=== PATIENT | male | born 1975 | race Caucasian/White ===

== ENCOUNTER 2020-04-15 22:06 | Emergency (ER) | payer OTHER, SELFPAY ==
--- NOTE | ~2020-04-15 | XR_ITS ---
. EXAMINATION: XR tibia fibula RT 2V DATE: 04/15/2020 22:39 INDICATION: Bruising at the right knee post fall 2 days prior. TECHNIQUE: AP and lateral views of the right tibia and fibula were obtained on overlapping proximal a nd distal images. COMPARISON: None. FINDINGS: Bone alignment is normal. No fracture. Joint spaces appear normal on nonweightbearing imaging. No rig ht knee or ankle joint effusion. Soft tissues are unremarkable with no radiopaque foreign bodies. IMPRESSION: 1. Negative right tibia/fibula radiographs. Reviewed, dictated and finalized at location A. [employer]
[2020-04-15 22:06] VITALS: BP 160/116; PULSE 105; RESP 16; TEMP 37.2; O2SAT 95
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
[2020-04-15] MEDS: TETANUS,DIPHTHERIA,AC PERTUSSIS ADULT (0.5 ML) BOOSTRIX IM (22:46)
--- NOTE | 2020-04-15 22:50 | PC.NURSE ---
Pt ambulated well in hallway without assistance
[2020-04-15 22:57] VITALS: BP 160/95; PULSE 92; RESP 16; TEMP 37.2; O2SAT 100
== END 2020-04-15 23:10 | disposition home or self-care (01) ==
PROVIDERS: Emergency Provider Emergency Medicine
DX: S81.001A Unspecified open wound, right knee, initial encounter (principal); L08.9 Local infection of the skin and subcutaneous tissue, unspecified; Z23 Encounter for immunization; I10 Essential (primary) hypertension; K21.9 Gastro-esophageal reflux disease without esophagitis; E78.5 Hyperlipidemia, unspecified; G47.33 Obstructive sleep apnea (adult) (pediatric); G56.22 Lesion of ulnar nerve, left upper limb; I48.0 Paroxysmal atrial fibrillation; M18.9 Osteoarthritis of first carpometacarpal joint, unspecified; F32.9 Major depressive disorder, single episode, unspecified; W19.XXXA Unspecified fall, initial encounter
CPT/HCPCS: 73590; 90471; 90715; 99283

== ENCOUNTER 2020-12-25 09:36 | Outpatient (CLI) | payer OTHER, SELFPAY ==
[2020-12-25 10:22] LABS: Basophils Absolute Auto 0.1 K/mm3 (0.0-0.1); Basophils Percent Auto 0.8 % (0.2-1.2); Eosinophils Absolute Auto 0.1 K/mm3 (0-0.3); Eosinophils Percent Auto 1.4 % (0-4.4); Hematocrit 40.9 % (42.0-52.0); Hemoglobin 12.9 g/dL (14.0-18.0); Immature Granulocyte Absolute 0.01 K/mm3 (0.00-0.031); Immature Granulocyte Percent A 0.1 % (0-0.5); Lymphocytes Absolute Auto 2.74 K/mm3 (0.9-3.2); Lymphocytes Percent Auto 35.9 % (18.3-44.2); Mean Corpuscular HGB Conc 31.5 g/dl (32-36); Mean Corpuscular Hemoglobin 32.8 pg (26-34); Mean Corpuscular Volume 104.1 fl (80-100); Mean Platelet Volume 9.2 fl (7.4-10.4); Monocytes Absolute Auto 1.2 K/mm3 (0.1-0.6); Monocytes Percent Auto 15.6 % (2.6-8.5); Neutrophils Absolute Auto 3.5 K/mm3 (1.3-6.7); Neutrophils Percent Auto 46.2 % (45.5-73.1); Platelet Count Result 272 k/mm3 (150-375); Red Blood Count 3.93 M/mm3 (4.6-6.20); White Blood Count 7.6 K/mm3 (4.5-10.0)
[2020-12-25 10:41] LABS: Alanine Aminotransferase 78 U/L (4-50); Albumin Level 4.9 g/dL (3.5-5.1); Alkaline Phosphatase 60 U/L (38-126); Anion Gap 14 mmol/L (8-16); Aspartate Amino Transferase 88 U/L (17-59); Bilirubin,Total 0.5 mg/dL (0.2-1.3); Blood Urea Nitrogen 12 mg/dL (9-20); Calcium 10.1 mg/dL (8.4-10.2); Carbon Dioxide 21 mmol/L (22-30); Chloride 107 mmol/L (98-107); Cholesterol 248 mg/dL (0-200); Estimated Glomerular Filt Rate > 60; Glucose 107 mg/dL (65-110); HDL Direct 66 mg/dL; Potassium 4.5 mmol/L (3.4-5.0); Sodium 142 mmol/L (137-145); Triglycerides 157 mg/dL (<150)
[2020-12-25 10:47] LABS: NT Pro B Type Natriuretic Pept 30 pg/mL (5-100)
[2020-12-25 10:52] LABS: LDL Cholesterol Direct 135 mg/dL
[2020-12-25 10:55] LABS: Free T4 Free Thyroxine 0.99 ng/mL (0.78-2.19)
[2020-12-25 11:09] LABS: Prostate Specific Antigen 1.3 ng/mL (< OR = 4.0); Total Triiodothyronine (T3) 1.65 NG/ML (0.97-1.69)
[2020-12-25 11:29] LABS: Creatinine Urine 262.7 mg/dL
[2020-12-25 11:33] LABS: MALB Creatinine Ratio 4.8 mg/g (0-30); Microalbumin Urine Random 12.6 mg/L (0-16.7)
[2020-12-25 11:45] LABS: Folic Acid 13.8 ng/mL (2.76->20)
[2020-12-25 12:00] LABS: Hemoglobin A1C 5.2 % (<5.7)
[2020-12-29 07:08] LABS: Vitamin B1 23 nmol/L (8-30)
[2020-12-29 19:17] LABS: Alpha-Tocopherol 15.5 mg/L (5.7-19.9); Beta-Gamma Tocopherol 2.1 mg/L (<=4.3)
[2021-01-01 12:04] LABS: Vitamin B2 43.5 nmol/L (6.2-39.0)
[2021-01-01 18:33] LABS: Coproporphyrin I 33.9 (6.5-33.2); Coproporphyrin III 58.9 (4.8-88.6)
== END 2020-12-25 09:37 | disposition home or self-care (01) ==
LOC: ANHLAB 09:40
PROVIDERS: PCP Family Medicine; Visit Provider Family Medicine
DX: N40.0 Benign prostatic hyperplasia without lower urinary tract symptoms (principal); I50.9 Heart failure, unspecified; R53.1 Weakness
CPT/HCPCS: 36415; 80053; 80061; 82043; 82306; 82607; 82746; 83036; 83880; 84120; 84153; 84252; 84425; 84439; 84443; 84446; 84480; 85025

== ENCOUNTER 2021-10-13 17:03 | Emergency (ER) | payer OTHER, SELFPAY ==
--- NOTE | ~2021-10-13 | XR_ITS ---
EXAM: XR shoulder RT min 2V DATE: 10/13/2021 17:17 HISTORY: fall TODAY, pain IN RT SHOULDER, PAIN WITH ROTATION . COMPARISON: None available. FINDINGS: Normal mineralization. No fracture or dislocation. No lytic or blastic lesion. Moderate de generative change at the AC joint. No erosion or periosteal change. Soft tissues within normal limits . IMPRESSION: No acute osseous finding in the right shoulder. Reviewed, dictated and finalized at location K.
[2021-10-13 17:19] VITALS: BP 148/93; PULSE 97; RESP 14; TEMP 36.6; O2SAT 97
--- NOTE | 2021-10-13 17:25 | PC.NURSE ---
Pt. rolling a joint in the vestibule. pt. advised against doing this. pt. said I know I am just rolling it, RN advised pt. against doing this. pt. states I know. PT ambulated out of ed w/ joint and sorter pricer in hand and attempting to light joint outside of facility.
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
--- NOTE | 2021-10-13 19:45 | PC.NURSE ---
Pt not in wr when called by farmworker [employer] to give d/c packet.
== END 2021-10-13 19:47 | disposition home or self-care (01) ==
PROVIDERS: Emergency Provider Nurse Practitioner Family; PCP Family Medicine
DX: S49.91XA Unspecified injury of right shoulder and upper arm, initial encounter (principal); I48.0 Paroxysmal atrial fibrillation; I10 Essential (primary) hypertension; E78.5 Hyperlipidemia, unspecified; K21.9 Gastro-esophageal reflux disease without esophagitis; G56.22 Lesion of ulnar nerve, left upper limb; G47.33 Obstructive sleep apnea (adult) (pediatric); M18.9 Osteoarthritis of first carpometacarpal joint, unspecified; V28.4XXA Motorcycle driver injured in noncollision transport accident in traffic accident, initial encounter
CPT/HCPCS: 73030; 99283; A4565

== ENCOUNTER 2022-07-23 09:06 | Outpatient (CLI) | payer OTHER, SELFPAY ==
--- NOTE | ~2022-07-23 | XR_ITS ---
Lumbosacral Spine: AP and lateral views Clinical History: Pain Findings: There are probably 6 lumbar type vertebral bodies. The normal lordotic curve is maintained. The vertebral bodies and posterior elements are intact. The intervertebral disc spaces are preserv ed. The sacroiliac joints are normally outlined. Impression: No significant abnormality. Reviewed, dictated and finalized at [facility]. Impression: No significant abnormality.
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
[2022-07-23 09:29] LABS: Basophils Percent Auto 0.3 % (0.2-1.2); Eosinophils Absolute Auto 0.1 K/mm3 (0-0.3); Eosinophils Percent Auto 1.1 % (0-4.4); Hematocrit 39.6 % (42.0-52.0); Hemoglobin 12.9 g/dL (14.0-18.0); Immature Granulocyte Absolute 0.05 K/mm3 (0.00-0.031); Immature Granulocyte Percent A 0.6 % (0-0.5); Lymphocytes Absolute Auto 3.52 K/mm3 (0.9-3.2); Lymphocytes Percent Auto 40.2 % (18.3-44.2); Mean Corpuscular HGB Conc 32.6 g/dl (32-36); Mean Corpuscular Hemoglobin 31.2 pg (26-34); Mean Corpuscular Volume 95.7 fl (80-100); Mean Platelet Volume 9.5 fl (7.4-10.4); Monocytes Absolute Auto 1.1 K/mm3 (0.1-0.6); Monocytes Percent Auto 12.5 % (2.6-8.5); Neutrophils Percent Auto 45.3 % (45.5-73.1); Platelet Count Result 205 k/mm3 (150-375); Red Blood Count 4.14 M/mm3 (4.6-6.20); Red Cell Distribution Width 16.7 % (11.5-14.5); White Blood Count 8.8 K/mm3 (4.5-10.0)
[2022-07-23 09:52] LABS: Alanine Aminotransferase 35 U/L (6-50); Albumin Level 4.4 g/dL (3.5-5.1); Alkaline Phosphatase 54 U/L (38-126); Anion Gap 5 mmol/L (8-16); Aspartate Amino Transferase 48 U/L (17-59); Bilirubin,Total 0.5 mg/dL (0.2-1.3); Blood Urea Nitrogen 16 mg/dL (9-20); Calcium 9.4 mg/dL (8.4-10.2); Carbon Dioxide 29 mmol/L (22-30); Chloride 104 mmol/L (98-107); Cholesterol 189 mg/dL (0-200); Estimated Glomerular Filt Rate > 60; Glucose 95 mg/dL (65-110); HDL Direct 71 mg/dL; Potassium 4.4 mmol/L (3.4-5.0); Sodium 138 mmol/L (137-145); Triglycerides 74 mg/dL (<150)
[2022-07-23 10:03] LABS: LDL Cholesterol Direct 92 mg/dL
[2022-07-23 14:05] LABS: Immature Reticulocyte Fraction 16.6 % (3.0-15.9); Reticulocyte Hemoglobin Conten 35.1 pg (28.2-35.7); Reticulocyte Percent 2.07 % (0.7-4.3); Reticulocytes Absolute 0.09 M/mm3 (0.02-0.1)
[2022-07-24 07:31] LABS: Folic Acid 11.9 ng/mL (2.76->20)
== END 2022-07-23 09:07 | disposition home or self-care (01) ==
PROVIDERS: PCP Internal Medicine; Visit Provider Clinical Nurse Specialist
DX: M54.41 Lumbago with sciatica, right side (principal); M54.42 Lumbago with sciatica, left side; G89.29 Other chronic pain; Z13.228 Encounter for screening for other metabolic disorders; E78.5 Hyperlipidemia, unspecified; I10 Essential (primary) hypertension; M54.6 Pain in thoracic spine; D64.9 Anemia, unspecified
CPT/HCPCS: 36415; 72072; 72100; 80053; 80061; 82607; 82746; 84443; 85025; 85046

== ENCOUNTER 2022-10-10 00:30 | Day surgery (SDC) | payer OTHER, SELFPAY ==
[2022-10-01 09:17] VITALS: BMI 27.1
[2022-10-10 07:20] VITALS: BP 108/86; PULSE 78; RESP 18; TEMP 36.4; O2SAT 99; BMI 24.2
--- NOTE | 2022-10-10 07:33 | WPDANESEPPF ---
Anes - Initial Pre Proc Eval Procedure: Operation Date: 10/10/22 08:00 Proposed Procedures p Screening Colonoscopy - Ludwig Kamara MD Date/Time: 10/10/22 07:33 Surgeon: Ludwig Kamara MD Pre Op Diagnosis: neoplasm screening Patient Data Age: 47 Gender: M Height: 1.83 m Weight: 81 kg Last Vital Signs Temp 97.6 F 10/10/22 07:20 Pulse 78 10/10/22 07:20 Resp 18 10/10/22 07:20 BP 108/86 10/10/22 07:20 Pulse Ox 99 10/10/22 07:20 O2 Del Method Room Air 10/10/22 07:20 Allergies Allergy/AdvReac Type Severity Reaction Status Date / Time morphine Allergy Intermediate itching Verified 10/10/22 07:28 Home Medications Medication Instructions Recorded Confirmed Type famotidine 20 mg tablet 20 mg PO DAILY #30 tabs 07/08/22 10/10/22 Rx bupropion HCl 150 mg 24 hr tablet, 150 mg PO QAM #30 tabs 09/15/22 10/10/22 Rx extended release ibuprofen 600 mg tablet 600 mg PO QID PRN Pain 10/01/22 10/10/22 History Patient hx anesthesia problems: none Family hx anesthesia problems: none Results Review: All pre-operative results and documents have been reviewed as part of the pre-operative evaluation. [facility] Past Medical History Medical History Chronic midline low back pain with bilateral sciatica Chronic midline thoracic back pain Essential (primary) hypertension Gastroesophageal reflux disease without esophagitis Hyperlipidemia, unspecified Major depressive disorder, recurrent, unspecified Neuropathy of left ulnar nerve at wrist Obstructive sleep apnea PAF (paroxysmal atrial fibrillation) Primary osteoarthritis of first carpometacarpal joint of left hand Primary osteoarthritis of first carpometacarpal joint of right hand Right carpal tunnel syndrome Tobacco abuse Family History Family History Father Family history of chronic obstructive pulmonary disease Family history of type 2 diabetes mellitus Family history of diabetes mellitus in first degree relative Family history of malignant neoplasm Mother Family history of chronic obstructive pulmonary disease Other Cerebrovascular accident Diabetes mellitus Family history of Alzheimer's disease Family history of allergic disorder Family history of malignant neoplasm of brain Family history of malignant neoplasm of esophagus Family history of thyroid disease Hypertension Social History Social History (Updated 07/08/22 @ 04:24 by RIVERA Tuttle-Ganesh) Smoking packs per day: 10 Smoking cigarettes per day: 200.0 Years smoked: 40 Smoking pack-years: 400.00 Smoking status: Current every day smoker Tobacco type: cigarettes Additional smoking assessment comments: Rolls his own cigarettes. Alcohol intake: current Alcohol use details: 12 pack weekly Substance use: current Substance use type: marijuana Other substance usage details: Medical marijuana- multiple times per week Lack of Transportation: No Lack of Food: Never True Current Housing: I Have Housing Concerned About Future Housing: No Difficulty Paying Gas/Electric Bills: No Difficulty Paying for Meds: No Currently Unemployed: No Difficulty w/ Childcare or Family Care: No Living arrangements: alone Spiritual care concerns: No Anes - Eval Final PreProcedure Day of Procedure 10/10/22 07:33 Patient weight: normal Heart: regular rate and rhythm Lungs: clear to auscultation Airway: Mallampati scale class II Neurological: alert and oriented Last oral intake: >/= 8 hours ASA classification: III Emergent: no Anesthetic plan: proceed Anesthesia type and monitoring: general GIVS and standard monitoring Results Review: All pre-operative results and documents have been reviewed as part of the pre-operative evaluation. Informed Consent: The patient's anesthetic plan and its attendant risks and benefits were discuss
[2022-10-10] MEDS: LACTATED RINGERS 1,000 ML 150 ML IV CONT (07:37)
--- NOTE | 2022-10-10 07:50 | PM.HPGS ---
History of Present Illness History of Present Illness Consent: Risks, benefits, and alternatives have been discussed and questions answered. Patient agrees to proceed with procedure. Chief complaint: neoplasm screening Narrative: Andrew Michael is a 47 year old male Presents for screening colonoscopy. Patient had previous colonoscopy 5 years ago performed in [place]. Patient had internal hemorrhoids that were banded. Several polyps of unknown histology type were removed at that time. The report stated that patient had poor preparation. Patient presents today for screening colonoscopy. Reports his weight appetite bowel movements are normal. He had occasionally has small amount of bright red blood with bowel movements. Family history is noncontributory. Review of Systems Review of Systems: Review of systems noncontributory. [facility] Past Medical History Medical History Chronic midline low back pain with bilateral sciatica Chronic midline thoracic back pain Essential (primary) hypertension Gastroesophageal reflux disease without esophagitis Hyperlipidemia, unspecified Major depressive disorder, recurrent, unspecified Neuropathy of left ulnar nerve at wrist Obstructive sleep apnea PAF (paroxysmal atrial fibrillation) Primary osteoarthritis of first carpometacarpal joint of left hand Primary osteoarthritis of first carpometacarpal joint of right hand Right carpal tunnel syndrome Tobacco abuse Family History Family History Father Family history of chronic obstructive pulmonary disease Family history of type 2 diabetes mellitus Family history of diabetes mellitus in first degree relative Family history of malignant neoplasm Mother Family history of chronic obstructive pulmonary disease Other Cerebrovascular accident Diabetes mellitus Family history of Alzheimer's disease Family history of allergic disorder Family history of malignant neoplasm of brain Family history of malignant neoplasm of esophagus Family history of thyroid disease Hypertension Social History Social History (Updated 07/08/22 @ 04:24 by Slime Graf, [employer]) Smoking packs per day: 10 Smoking cigarettes per day: 200.0 Years smoked: 40 Smoking pack-years: 400.00 Smoking status: Current every day smoker Tobacco type: cigarettes Additional smoking assessment comments: Rolls his own cigarettes. Alcohol intake: current Alcohol use details: 12 pack weekly Substance use: current Substance use type: marijuana Other substance usage details: Medical marijuana- multiple times per week Lack of Transportation: No Lack of Food: Never True Current Housing: I Have Housing Concerned About Future Housing: No Difficulty Paying Gas/Electric Bills: No Difficulty Paying for Meds: No Currently Unemployed: No Difficulty w/ Childcare or Family Care: No Living arrangements: alone Spiritual care concerns: No Meds Home Medications and Allergies Home Medications Medication Instructions Recorded Confirmed Type famotidine 20 mg tablet 20 mg PO DAILY #30 tabs 07/08/22 10/10/22 Rx bupropion HCl 150 mg 24 hr tablet, 150 mg PO QAM #30 tabs 09/15/22 10/10/22 Rx extended release ibuprofen 600 mg tablet 600 mg PO QID PRN Pain 10/01/22 10/10/22 History Allergies Allergy/AdvReac Type Severity Reaction Status Date / Time morphine Allergy Intermediate itching Verified 10/10/22 07:28 Vital Signs Vital Signs - 24 hr 10/10/22 07:20 Temperature 97.6 F Pulse Rate 78 Respiratory Rate 18 Blood Pressure 108/86 Pulse Oximetry 99 Oxygen Delivery Room Air Exam Narrative: Physical exam reveals patient to be alert. Vital signs stable. HEENT exam is unremarkable. Patient is anicteric. Lungs are clear to auscultation and percussion. Heart is without murmur or extra sounds. Abdomen quynh
[2022-10-10 08:25] VITALS: BP 100/70; PULSE 68; RESP 14; O2SAT 100
[2022-10-10 08:35] VITALS: BP 115/79; PULSE 66; RESP 17; O2SAT 100
[2022-10-10 08:45] VITALS: BP 123/82; PULSE 62; RESP 23; O2SAT 100
--- NOTE | 2022-10-10 08:53 | SUR.PHASEII ---
2 sandwiches and 2 apple juice sent with pt along with information on food pantries in the area, med cab to [place] and return home
== END 2022-10-10 09:15 | disposition home or self-care (01) ==
PROVIDERS: PCP Internal Medicine; Visit Provider Internal Medicine Gastroenterology
PROC: 0DJD8ZZ Inspection of Lower Intestinal Tract, Via Natural or Artificial Opening Endoscopic (ICD-10-PCS; CPT 45378; principal; 2022-10-10 08:00)
DX: Z12.11 Encounter for screening for malignant neoplasm of colon (principal); K63.5 Polyp of colon; D12.2 Benign neoplasm of ascending colon; D12.5 Benign neoplasm of sigmoid colon; K62.1 Rectal polyp; K64.8 Other hemorrhoids; I10 Essential (primary) hypertension; K21.9 Gastro-esophageal reflux disease without esophagitis; E78.5 Hyperlipidemia, unspecified; F33.9 Major depressive disorder, recurrent, unspecified; I48.0 Paroxysmal atrial fibrillation; G47.33 Obstructive sleep apnea (adult) (pediatric); F17.210 Nicotine dependence, cigarettes, uncomplicated; F12.90 Cannabis use, unspecified, uncomplicated
CPT/HCPCS: 45385; 88305; J2704; J7120